=== PATIENT | female | born 1995 | race Two or more races ===

== ENCOUNTER 2024-03-28 18:58 | Emergency (ER) | payer OTHER ==
[~2024-03-28] VITALS: Ht 170.2 cm; Wt 87.0 kg
[2024-03-28 19:30] VITALS: BP 152/106; PULSE 91; RESP 20; O2SAT 98
== END 2024-03-28 19:38 | disposition left against medical advice (07) ==
LOC: ER 18:58
DX: M54.89 Other dorsalgia (principal); Z53.21 Procedure and treatment not carried out due to patient leaving prior to being seen by health care provider